=== PATIENT | female | born 2000 | race Caucasian/White ===

== ENCOUNTER 2023-05-21 20:35 | Outpatient (REF) | payer BC, SELFPAY ==
[2023-05-25 12:10] LABS: HPV Aptima Negative (Negative); Pap IG (Image Guided) Note (.)
== END 2023-05-21 20:36 | disposition home or self-care (01) ==
LOC: LAB 20:35
PROVIDERS: Visit Provider Obstetrics & Gynecology
DX: R87.613 High grade squamous intraepithelial lesion on cytologic smear of cervix (HGSIL) (principal)